=== PATIENT | male | born 1965 | race Caucasian/White ===

== ENCOUNTER 2020-02-20 17:20 | Emergency (ER) | payer MEDICARE, MEDICAID, SELFPAY ==
[2020-02-20 17:20] VITALS: BP 188/97; PULSE 67; RESP 18; TEMP 36.5; O2SAT 100; BMI 19.5
--- NOTE | 2020-02-20 17:26 | HMH.EDGENADL ---
ED Disposition Clinical Impression: Acute pancreatitis Qualifiers: Pancreatitis type: unspecified pancreatitis type Acute pancreatitis complication: no infection or necrosis Qualified Code(s): K85.90 - Acute pancreatitis without necrosis or infection, unspecified Chronic pancreatitis Qualifiers: Pancreatitis type: alcohol induced Qualified Code(s): K86.0 - Alcohol-induced chronic pancreatitis Abdominal mass Qualifiers: Abdominal location: epigastric Qualified Code(s): R19.06 - Epigastric swelling, mass or lump Disposition: Xfer Short-Term Hosp Condition on Discharge: Fair Instructions: DI for Acute Abdomen Referrals: Provider,Referral, MD [Primary Care Provider] - Forms: Transfer Record - ED - Critical Care Critical Care Time: No Attestation: On , the high probability of a clinically significant, sudden or life threatening deterioration of the following system(s) required my full and direct attention, intervention and personal management. The time I documented below is in addition to time spent performing reported procedures but includes the following listed in this critical care notation. Medical Decision Making - Medical Records Medical records reviewed: Yes: I reviewed the patient's medical records. - Abner Inquiry Pt receiving controlled substance: Yes Abner was queried for this patient: No Reason not queried -: Emergent pt cond-no time Risks and benefits of using a controlled substance: were not discussed with pt by me Vital Signs: 02/20/20 17:20 02/20/20 18:36 Temperature 97.7 F Temperature Source Oral Pulse Rate [Right Radial] 67 77 Respiratory Rate 18 16 Blood Pressure [Right Arm] 188/97 H 186/86 H Blood Pressure Mean [Right Arm] 127 119 Blood Pressure Source [Right Arm] Automatic Cuff Blood Pressure Position [Right Arm] Sitting Sitting 02 Sat by Pulse Oximetry 100 97 Oxygen Delivery Method Room Air Room Air - Lab Data Lab results reviewed: Yes: I reviewed the patient's lab results. Lab Results 02/20/20 17:30: WBC 13.8 H, RBC 5.17, Hgb 15.0, Hct 47.1, MCV 91.0, MCH 29.0, MCHC 31.9, RDW 14.0, Plt Count 362, MPV 8.3, Neut % (Auto) 79.7, Lymph % (Auto) 12.2, Milam % (Auto) 5.0, Eos % (Auto) 2.1, Baso % (Auto) 0.9, Neut # (Auto) 11.0 H, Lymph # (Auto) 1.7, Milam # (Auto) 0.7, Eos # (Auto) 0.3, Baso # (Auto) 0.1 02/20/20 18:00: Sodium 141, Potassium 3.8, Chloride 100, Carbon Dioxide 33 H, Anion Gap 11.8, BUN 16, Creatinine 0.70, Estimated Creat Clear 97, Estimated GFR 118, Est GFR ( Amer) 142, Glucose 117 H, Calcium 9.9, Total Bilirubin 0.5, AST 26, ALT 12, Alkaline Phosphatase 98, Total Protein 8.1, Albumin 5.0, Globulin 3.1, Albumin/Globulin Ratio 1.6, Amylase 228 H, Lipase 375 H 02/20/20 18:00: Troponin I < 0.01 Result diagrams: 02/20/20 17:30 02/20/20 18:00 Orders (Tests/Meds): ED MEDICATIONS Discontinued Medications Generic Name Dose Route Start Last Admin Trade Name Freq PRN Reason Stop Dose Admin Diphenhydramine HCl 12.5 mg 02/20/20 17:42 02/20/20 17:37 Benadryl 50mg/1ml Vial IV 02/20/20 17:43 12.5 mg ONCE ONE Administration Ioversol 75 ml 02/20/20 18:22 02/20/20 18:22 Rad-Optiray 350 100ml Vial IV 02/20/20 18:23 75 ml ONCE ONE Administration Protocol Morphine Sulfate 4 mg 02/20/20 17:34 02/20/20 17:41 Morphine 4mg/Ml Syringe IV 02/20/20 17:35 4 mg ONCE ONE Administration Morphine Sulfate 4 mg 02/20/20 18:37 02/20/20 18:38 Morphine 4mg/Ml Syringe IV 02/20/20 18:38 4 mg ONCE ONE Administration Morphine Sulfate 4 mg 02/20/20 19:42 02/20/20 19:43 Morphine 4mg/Ml Syringe IV 02/20/20 19:43 4 mg ONCE ONE Administration Ondansetron HCl 4 mg 02/20/20 17:34 02/20/20 17:30 Zofran 4mg/2ml Vial IV 02/20/20 17:35 4 mg ONCE ONE Administration Sodium Chloride 1,000 ml 02/20/20 17:34 02/20/20 17:41 Sod Chlor 0.9% 1000ml Bag IV 02/20/20 17:35 1,000 ml BOLUS ONE Administration Sodium Chlorid
--- NOTE | 2020-02-20 17:33 | CT_ITS ---
PROCEDURE: CT ABDOMEN PELVIS W CON CLINICAL INDICATION: epigastric pain, h/o pancreatitis COMPARISON: No exams were available for comparison TECHNIQUE: IV Contrast: 75ML OPTIRAY 350 Oral Contrast none the Axial images obtained with sagittal and coronal reformats. All CT scans at the facility use one or more dose reduction, viz: automated exposure control, ma/kV adjustment per patient size (including targeted exams where dose is matched to indication, i.e. head), or iterative reconstruction technique. FINDINGS: LOWER THORAX: No acute finding ABDOMEN & PELVIS: 7 mm hypodensity is present in the left hepatic lobe segment 4A nonspecific too small to categorize.. The spleen, adrenal glands, and kidneys have an unremarkable appearance. Gallbladder also appears unremarkable. A suspicious soft tissue mass is noted along the medial portion of the greater curvature of the bodies of the stomach. This measures up to 5.3 cm AP and 4.2 cm transverse and is inseparable from the wall of the stomach and the upper aspect of the body of the pancreas. The pancreatic tail is dilated distal to this region. There is some coarse calcification in the pancreas in the region of the pancreatic duct. This mass is highly suspicious for neoplasm and may be arising from the stomach or from the pancreas and invading the stomach. The pancreatic duct is also slightly dilated in the body and head of the pancreas with coarse calcifications in the head of the pancreas. No intestinal obstruction or free air is evident. No evidence of appendicitis or diverticulitis. No abnormal fluid collections. The prostate is somewhat enlarged at 4.8 cm. No acute bony anomalies. IMPRESSION: 1. Heterogeneous 5 cm soft tissue mass along the lesser curvature of the stomach and the anterior and superior aspect of the body of the pancreas suspicious for neoplasm and may be originating either from the stomach or the pancreas. MRI with pancreatic protocol suggested for further evaluation. Biopsy could be obtained with endoscopic transgastric directed biopsy. 2. Chronic pancreatitis with coarse calcifications of the pancreas. There is ductal dilatation involving the entire pancreatic duct but is greater in the mid body and tail possibly due to obstruction by the mass. It is possible but felt to be less likely that the mass could be phlegmonous changes from pancreatitis. 3. Indeterminate 7 mm hypodensity of the left lobe of the liver Dictated by: Andrez Joseph MD 02/21/2020 09:48 Electronically signed by Andrez Joseph MD in [place] 02/21/2020 09:48
--- NOTE | 2020-02-20 17:35 | PC.NURSE ---
rt arm with localized redness and c/o itching around IV site after giving zofran
[2020-02-20 17:42] LABS: Basophils # 0.1 K/mm3 (0-0.2); Basophils % 0.9 % (0.1-2.0); Eosinophils # 0.3 K/mm3 (0.0-0.4); Eosinophils % 2.1 % (0.1-12.0); Hematocrit 47.1 % (42.0-52.0); Lymphocytes # 1.7 K/mm3 (0.7-4.5); Lymphocytes % 12.2 % (10-50); Mean Corpuscular HGB Conc 31.9 g/dL (31.8-35.4); Mean Platelet Volume 8.3 fl (7.4-10.4); Monocytes # 0.7 K/mm3 (0.1-1.0); Neutrophils % 79.7 % (37.0-80.0); Platelet Count 362 K/mm3 (142-424); Red Blood Count 5.17 M/mm3 (4.60-6.20); White Blood Count 13.8 K/mm3 (4.8-10.8)
--- NOTE | 2020-02-20 18:15 | PC.NURSE ---
pt to CT
[2020-02-20 18:17] LABS: Chloride 100 mmol/L (98-107); Potassium 3.8 mmoL/L (3.5-5.1); Sodium 141 mmol/L (136-145)
[2020-02-20 18:19] LABS: Amylase 228 U/L (30-110); Blood Urea Nitrogen 16 mg/dl (9-20); Creatinine Clearance Estimated 97 mL/min (50-200); Estimated Glomerular Filt Rate 118 ml/min (>60); GFR (African American) 142 ML/MIN (>60)
[2020-02-20 18:20] LABS: Alanine Aminotransferase 12 U/L (12-78); Albumin/Globulin Ratio 1.6 (1.1-1.8); Alkaline Phosphatase 98 U/L (38-126); Anion Gap 11.8 mEq/L (5-15); Aspartate Amino Transferase 26 U/L (17-59); Bilirubin,Total 0.5 mg/dl (0.2-1.3); Calcium 9.9 mg/dl (8.4-10.2); Carbon Dioxide 33 mmol/L (22.0-30.0); Globulin 3.1 g/dL (1.3-3.2); Glucose 117 mg/dl (74-100); Lipase 375 U/L (23-300); Total Protein,Serum 8.1 g/dl (6.3-8.2)
--- NOTE | 2020-02-20 18:27 | PC.NURSE ---
Pt returned from rad.
--- NOTE | 2020-02-20 18:31 | ECG_ITS ---
APPROVED REPORT Exam: Resting ECG HR:72 bpm ECG Measurements Heart Rate 72 AXES TN 136 P 54 QRSd 96 QRS 79 QT 394 T 72 QTc 431 <Conclusion> Normal sinus rhythm Normal ECG Electronically signed by : Allan Springer, 02/22/2020 06:33:30
[2020-02-20 18:32] LABS: Troponin I < 0.01 ng/ml (0.00-0.034)
[2020-02-20 18:36] VITALS: BP 186/86; PULSE 77; RESP 16; O2SAT 97
--- NOTE | 2020-02-20 19:00 | PC.NURSE ---
report given to sinanrn
--- NOTE | 2020-02-20 19:15 | PC.NURSE ---
paged dr riley
--- NOTE | 2020-02-20 19:24 | PC.NURSE ---
faxed paper to [facility] called and spoke with nga @ [facility] to obtain ed consult.
--- NOTE | 2020-02-20 19:26 | PC.NURSE ---
md on phone [facility] at this time. vss given per phone to the transfer nurse.
--- NOTE | 2020-02-20 19:28 | PC.NURSE ---
pt accepted to ER by Dr. Lindsay.
--- NOTE | 2020-02-20 19:32 | PC.NURSE ---
called and left message on radha's phone
--- NOTE | 2020-02-20 19:37 | PC.NURSE ---
paging dr nam per md request since patient is established with dr te nam at [facility] as his brother just informed us.
--- NOTE | 2020-02-20 19:49 | PC.NURSE ---
on phone with dr te nam
--- NOTE | 2020-02-20 19:57 | PC.NURSE ---
pt accepted by dr nam and will choose to transfer to [facility] instead. awaiting call back
--- NOTE | 2020-02-20 19:59 | PC.NURSE ---
called and spoke with kamilah at [facility] and cancelled [facility] transfer.
--- NOTE | 2020-02-20 20:05 | PC.NURSE ---
pt called out and asked if he could take his home seizure medications. this nurse spoke with Dr. duenas and was told the pt could take his seizure medication from home at this time.
[2020-02-20 20:45] VITALS: BP 168/61; PULSE 79; RESP 18; TEMP 36.8; O2SAT 98
== END 2020-02-20 21:00 | disposition short-term general hospital (02) ==
PROVIDERS: Emergency Provider Emergency Medicine
DX: K85.90 Acute pancreatitis without necrosis or infection, unspecified (principal); K86.0 Alcohol-induced chronic pancreatitis; E11.9 Type 2 diabetes mellitus without complications; F17.210 Nicotine dependence, cigarettes, uncomplicated; F12.10 Cannabis abuse, uncomplicated
CPT/HCPCS: 74177; 80053; 82150; 83690; 84484; 85025; 93005; 96365; 96375; 96376; 99284; J2405; Q9967

== ENCOUNTER 2020-06-07 19:02 | Emergency (ER) | payer MEDICARE, MEDICAID, SELFPAY ==
[2020-06-07] VITALS (7 sets, daily range): BP systolic 136–152; BP diastolic 76–86; PULSE 74–87; RESP 16–19; TEMP 36.9–37.2; O2SAT 97–100; BMI 20.3
--- NOTE | 2020-06-07 19:12 | HMH.EDGENADL ---
ED Disposition <Danny Morin - Last Filed: 06/07/20 20:05> Condition on Discharge: Good - Critical Care Critical Care Time: No <Jackson Taveras - Last Filed: 06/07/20 23:26> Clinical Impression: Nausea, Abdominal mass Abdominal pain Qualifiers: Abdominal location: generalized Qualified Code(s): R10.84 - Generalized abdominal pain Disposition: Xfer Short-Term Hosp Referrals: Provider,Referral, MD [Referring] - Forms: Transfer Record - ED Attestation: On 06/07/20, the high probability of a clinically significant, sudden or life threatening deterioration of the following system(s) required my full and direct attention, intervention and personal management. The time I documented below is in addition to time spent performing reported procedures but includes the following listed in this critical care notation. Medical Decision Making - Medical Records Medical records reviewed: Yes: I reviewed the patient's medical records. MR Comment: 54-year-old male presents the emergency department with abdominal pain. He arrives to the ED hemodynamically stable, with reassuring vital signs, and looks well on exam. He asked for Dilaudid multiple times on the way to the ER per EMS and told me that Dilaudid is all that helps his pain, he also yells out with pain prior to me touching his abdomen on exam. This is concerning for issues of secondary gain, however he does have a history of pancreatitis and complains of tenderness. Will check labs and get a CT scan and reassess. - Abner Inquiry Pt receiving controlled substance: No <Danny Morin - Last Filed: 06/07/20 20:05> - Medical Records MR Comment: CT image demonstrated large mass in right upper quadrant, patient was transferred to [facility] for admission to trauma surgery. - Lab Data Result diagrams: 06/07/20 19:30 06/07/20 19:30 <Jackson Taveras - Last Filed: 06/07/20 23:26> Vital Signs: 06/07/20 19:02 06/07/20 19:42 06/07/20 20:49 Temperature 98.9 F Temperature Source Oral Pulse Rate [Left Radial] 84 85 76 Respiratory Rate 19 18 18 Blood Pressure [Right Arm] 136/79 140/86 151/81 H Blood Pressure Mean [Right Arm] 98 104 104 Blood Pressure Source [Right Arm] Automatic Cuff Blood Pressure Position [Right Arm] Sitting 02 Sat by Pulse Oximetry 100 97 100 Oxygen Delivery Method Room Air Room Air Room Air 06/07/20 21:08 06/07/20 21:39 06/07/20 22:51 Temperature Temperature Source Pulse Rate [Left Radial] 87 75 81 Respiratory Rate 18 18 18 Blood Pressure [Right Arm] 150/83 H 152/83 H 138/76 Blood Pressure Mean [Right Arm] 105 106 96 Blood Pressure Source [Right Arm] Blood Pressure Position [Right Arm] 02 Sat by Pulse Oximetry 100 100 98 Oxygen Delivery Method Room Air Room Air Room Air - Lab Data Lab Results 06/07/20 19:30: WBC 6.6, RBC 3.15 L, Hgb 9.7 L, Hct 29.7 L, MCV 94.1 H, MCH 30.6, MCHC 32.5, RDW 14.7, Plt Count 351, MPV 7.8, Neut % (Auto) 65.8, Lymph % (Auto) 25.6, Hendricks % (Auto) 6.6, Eos % (Auto) 1.6, Baso % (Auto) 0.4, Neut # (Auto) 4.3, Lymph # (Auto) 1.7, Hendricks # (Auto) 0.4, Eos # (Auto) 0.1, Baso # (Auto) 0.0 06/07/20 19:30: Sodium 137, Potassium 4.1, Chloride 95 L, Carbon Dioxide 33 H, Anion Gap 13.1, BUN 14, Creatinine 0.80, Estimated Creat Clear 102, Estimated GFR 101, Est GFR ( Amer) 122, Glucose 106 H, Calcium 9.9, Total Bilirubin 0.8, AST 31, ALT 19, Alkaline Phosphatase 87, Total Protein 7.5, Albumin 4.3, Globulin 3.2, Albumin/Globulin Ratio 1.3, Amylase 91, Lipase 83 06/07/20 19:30: Urine Color Yellow, Urine Appearance Sl cloudy, Urine pH >= 9.0 H, Ur Specific [place] 1.015, Urine Protein 1+, Urine Glucose (UA) Negative, Urine Ketones Trace, Urine Blood Negative, Urine Nitrate Negative, Urine Bilirubin Negative, Urine Urobilinogen 1.0, Ur Leukocyte Esterase Negative, Urine WBC 3-5, Ur Squamous Epith Cells 3-5, Urine Sperm 3+ Orders (Tests/Meds): ED MEDICATIONS Generic Name Dose Route Start Las
--- NOTE | 2020-06-07 19:15 | CT_ITS ---
PROCEDURE: CT ABDOMEN PELVIS W CON CLINICAL INDICATION: pain Left lower quadrant pain with diarrhea COMPARISON: CT CT ABDOMEN PELVIS W CON from 02/20/2020 TECHNIQUE: IV Contrast: 75ML OPTIRAY 350 Oral Contrast None Axial images obtained with sagittal and coronal reformats. All CT scans at the facility use one or more dose reduction, viz: automated exposure control, ma/kV adjustment per patient size (including targeted exams where dose is matched to indication, i.e. head), or iterative reconstruction technique. FINDINGS: LOWER THORAX: No acute finding ABDOMEN & PELVIS: There is a 6 mm hypodensity in the right hepatic lobe, segment 8 possibly due to small cyst not significantly changed. The spleen and adrenal glands are unremarkable. There are multiple metallic fragments now present in the upper abdomen medial to the lesser curvature of the stomach. Previously noted soft tissue mass in the upper abdomen has enlarged and extends toward the right across midline in the right mid abdominal region and into the right upper quadrant and right mid abdominal region with the lower part of the mass at the level of the iliac crest. This mass roughly measures 18 cm long and up to 5.7 cm AP and is contiguous with the lesser curvature of the stomach and the body of the pancreas. Previously the lesion measured 4 by 5 cm. There is dilatation of the distal aspect of the pancreatic duct with coarse calcifications in the pancreas. Hyperdense fluid is present in the pelvis and may be due to hemorrhagic fluid. There is mild thickening of the urinary bladder wall. The prostate is enlarged at 4.8 cm. No evidence of intestinal obstruction or free air. The appendix has an unremarkable appearance. There is some minimal thickening of the right pericolic fascia. The bowel gas pattern is nonspecific with fluid-filled loops of small bowel nondistended and a few scattered air-fluid levels. There is mild urinary bladder wall thickening which may be seen with incomplete distension, chronic outflow obstruction, or cystitis. There are mild degenerative changes in the lumbar spine. IMPRESSION: 1. Large heterogeneous lobulated masslike structure in the upper abdomen along the lesser curvature of the stomach and extending into the right upper quadrant and right mid to lower abdominal region laterally which is increased in size. The increase in size could be related to extension of the soft tissue mass and or hemorrhage into the mass. Multiple metallic densities are now present along the superior aspect of the lesion and could be due to recent surgery or even radiation implants. Please correlate with patient's surgical history 2. Small amount hemorrhagic/complex free fluid in the pelvis. 3. There is mild urinary bladder wall thickening which may be seen with incomplete distension, chronic outflow obstruction, or cystitis. 4. Nondistended fluid-filled loops of small bowel with a few air-fluid levels which could be seen with enteritis. Dictated by: Andrez Joseph MD 06/08/2020 07:22 Andrez Joseph MD in [place] 06/08/2020 07:22
[2020-06-07 19:35] LABS: Microscopic, Urine URINE MICROSCOPIC (MICROSCOPIC)
--- NOTE | 2020-06-07 19:41 | PC.NURSE ---
medical release faxed to [facility] for records
[2020-06-07 20:01] LABS: Appearance,Urine SL CLOUDY (Clear); Basophils % 0.4 % (0.1-2.0); Bilirubin,Urine Negative (Negative); Blood, Urine Negative (Negative); Color,Urine YELLOW (Yellow); Eosinophils # 0.1 K/mm3 (0.0-0.4); Eosinophils % 1.6 % (0.1-12.0); Glucose,Urine (UA) Negative (Negative); Hemoglobin 9.7 g/dL (14.1-18.0); Ketones,Urine TRACE (Negative); Leukocyte Esterase,Urine Negative (Negative); Lymphocytes # 1.7 K/mm3 (0.7-4.5); Lymphocytes % 25.6 % (10-50); Mean Corpuscular HGB Conc 32.5 g/dL (31.8-35.4); Mean Corpuscular Hemoglobin 30.6 pg (27.0-31.2); Mean Corpuscular Volume 94.1 fl (80-94); Mean Platelet Volume 7.8 fl (7.4-10.4); Monocytes # 0.4 K/mm3 (0.1-1.0); Monocytes % 6.6 % (1.7-9.3); Neutrophils # 4.3 K/mm3 (1.8-7.8); Neutrophils % 65.8 % (37.0-80.0); Nitrate,Urine Negative (Negative); Platelet Count 351 K/mm3 (142-424); Protein,Urine 1+ (Negative); Red Blood Count 3.15 M/mm3 (4.60-6.20); Red Cell Distribution Width 14.7 % (11.5-17.5); Specific Gravity, Urine 1.015 (1.005-1.030); White Blood Count 6.6 K/mm3 (4.8-10.8)
[2020-06-07 20:02] LABS: PH,Urine >= 9.0 (5.0-8.5)
[2020-06-07 20:05] LABS: Sperm,Urine 3+ /lpf
[2020-06-07 20:06] LABS: Alanine Aminotransferase 19 U/L (12-78); Albumin Level 4.3 g/dl (3.5-5.0); Albumin/Globulin Ratio 1.3 (1.1-1.8); Alkaline Phosphatase 87 U/L (38-126); Amylase 91 U/L (30-110); Aspartate Amino Transferase 31 U/L (17-59); Bilirubin,Total 0.8 mg/dl (0.2-1.3); Blood Urea Nitrogen 14 mg/dl (9-20); Calcium 9.9 mg/dl (8.4-10.2); Carbon Dioxide 33 mmol/L (22.0-30.0); Creatinine Clearance Estimated 102 mL/min (50-200); Estimated Glomerular Filt Rate 101 ml/min (>60); GFR (African American) 122 ML/MIN (>60); Globulin 3.2 g/dL (1.3-3.2); Glucose 106 mg/dl (74-100); Hematocrit 29.7 % (42.0-52.0); Lipase 83 U/L (23-300); Potassium 4.1 mmoL/L (3.5-5.1); Sodium 137 mmol/L (136-145); Total Protein,Serum 7.5 g/dl (6.3-8.2)
[2020-06-07 20:08] LABS: Anion Gap 13.1 mEq/L (5-15); Chloride 95 mmol/L (98-107)
--- NOTE | 2020-06-07 21:14 | PC.NURSE ---
called to check status of records. Stated they would send them over in a few minutes
--- NOTE | 2020-06-07 21:46 | PC.NURSE ---
calling [facility] to check status of records. stated they were sending them now
--- NOTE | 2020-06-07 22:05 | PC.NURSE ---
[facility] records received
--- NOTE | 2020-06-07 22:16 | PC.NURSE ---
speaking with [facility]
== END 2020-06-07 23:30 | disposition short-term general hospital (02) ==
PROVIDERS: Emergency Medicine; Emergency Provider Emergency Medicine
DX: R10.84 Generalized abdominal pain (principal); K86.1 Other chronic pancreatitis; R19.01 Right upper quadrant abdominal swelling, mass and lump; I10 Essential (primary) hypertension; E11.9 Type 2 diabetes mellitus without complications; Z79.899 Other long term (current) drug therapy
CPT/HCPCS: 74177; 80053; 81001; 82150; 83690; 85025; 96365; 96375; 96376; 99284; J2405; Q9967

== ENCOUNTER 2020-06-22 16:49 | Observation (INO) | payer MEDICARE, MEDICAID, SELFPAY ==
[2020-06-22] VITALS (7 sets, daily range): BP systolic 115–153; BP diastolic 78–96; PULSE 79–110; RESP 16–20; TEMP 36.6–36.9; O2SAT 98–100; BMI 17.0; BMI 18.8; BMI 15.4
--- NOTE | 2020-06-22 17:13 | CT_ITS ---
PROCEDURE: CT ABDOMEN PELVIS W CON CLINICAL INDICATION: recent abd mass resection; severe low abd pain COMPARISON: CT CT ABDOMEN PELVIS W CON from 02/20/[address] ABDOMEN PELVIS W CON from 06/07/2020 TECHNIQUE: IV Contrast: 75ML OPTIRAY 350 Oral Contrast None Axial images obtained with sagittal and coronal reformats. All CT scans at the facility use one or more dose reduction, viz: automated exposure control, ma/kV adjustment per patient size (including targeted exams where dose is matched to indication, i.e. head), or iterative reconstruction technique. FINDINGS: There is history of recent abdominal surgery. There is a subtle low-density in the left hepatic lobe anteriorly image 27 measuring 4 mm. The spleen, adrenal glands, and kidneys have an unremarkable appearance. Multiple surgical clips are present in the mid epigastric region as before. There is a coiled tubular device within the stomach of unknown etiology. In addition, there is a additional hyperdense vice along the lesser curvature of the stomach which is spool shape. Please correlate as the patient's intra recent surgery. This may represent some type of stent or drainage device. There has been some debulking of the soft tissue mass along the lesser curvature of the stomach and in the right upper quadrant anterior to the head of the pancreas. There is however some lobular fluid collection in this area with a few air-fluid levels and mild enhancement. Soft tissue mass once again noted in the right mid abdominal region anterior to the ascending colon. There appears to be involvement of the transverse colon by the right upper quadrant mass. Although the mass, has been somewhat debulked, there remains prominent soft tissue mass in the right mid and upper abdomen with heterogeneous areas of fluid density and gas density. The gas/fluid density could be related to abscess development or postsurgical change. It is somewhat difficult to determine the exact size of these collections and if all these collections are abscess versus areas of unopacified bowel without the aid of oral contrast.. Multiple unopacified bowel loops in the abdomen or pelvis which could obscure or mimic pathology. If symptoms persist, consider repeat exam with IV and oral contrast. No acute bony findings. IMPRESSION: There has been interval surgery. There is complex soft tissue mass in the right quadrant and right mid abdominal region. Some of the mass has been debulked. There are areas of gas and fluid density which could be related to abscess involvement versus postsurgical change. Some of the fluid could be related unopacified bowel loops. Suggest repeat exam with both IV and adequate oral contrast for more thorough evaluation. There is a stent or drainage device within the lesser curvature of the stomach with what appears to represent a loose coiled catheter within the stomach. Please correlate with surgical history. [facility] report rendered 06/22/2020 at 6:24 p.m. Dictated by: Andrez Joseph MD 06/23/2020 08:49 Andrez Joseph MD in [place] 06/23/2020 08:49
--- NOTE | 2020-06-22 17:18 | HMH.EDABDPAI ---
ED Disposition Clinical Impression: Abdominal mass, right upper quadrant, Duodenocolic fistula Disposition: Admitted As Inpatient Condition on Discharge: Fair Instructions: DI for Acute Abdomen Referrals: PCP,No [Primary Care Provider] - - Critical Care Critical Care Time: No Attestation: On 06/22/20, the high probability of a clinically significant, sudden or life threatening deterioration of the following system(s) required my full and direct attention, intervention and personal management. The time I documented below is in addition to time spent performing reported procedures but includes the following listed in this critical care notation. Medical Decision Making - Medical Records Medical records reviewed: Yes: I reviewed the patient's medical records. - Abner Inquiry Pt receiving controlled substance: No Vital Signs: 06/22/20 17:08 06/22/20 17:09 06/22/20 18:15 Temperature 98.2 F 98 F Temperature Source Oral Oral Pulse Rate [Orthostatic Lying] 94 H Pulse Rate [Orthostatic Standing] 110 H Pulse Rate [Right Brachial] 105 H 92 H Respiratory Rate 17 16 Blood Pressure [Orthostatic Lying] 149/92 H Blood Pressure [Orthostatic Standing] 115/80 Blood Pressure [Right Arm] 139/96 H 153/87 H Blood Pressure Mean [Right Arm] 110 109 Blood Pressure Source [Right Arm] Automatic Cuff Blood Pressure Position [Right Arm] Sitting Sitting 02 Sat by Pulse Oximetry 100 98 Oxygen Delivery Method Room Air Room Air 06/22/20 19:01 06/22/20 19:50 Temperature Temperature Source Pulse Rate [Orthostatic Lying] Pulse Rate [Orthostatic Standing] Pulse Rate [Right Brachial] 82 90 Respiratory Rate 18 18 Blood Pressure [Orthostatic Lying] Blood Pressure [Orthostatic Standing] Blood Pressure [Right Arm] 152/91 H 128/82 Blood Pressure Mean [Right Arm] 111 97 Blood Pressure Source [Right Arm] Automatic Cuff Blood Pressure Position [Right Arm] Supine 02 Sat by Pulse Oximetry 100 99 Oxygen Delivery Method Room Air - Lab Data Lab Results 06/22/20 17:34: WBC 7.8, RBC 3.24 L, Hgb 9.8 L, Hct 29.3 L, MCV 90.7, MCH 30.3, MCHC 33.5, RDW 14.4, Plt Count 635 H, MPV 7.3 L, Neut % (Auto) 65.0, Lymph % (Auto) 23.3, Clay % (Auto) 8.0, Eos % (Auto) 2.9, Baso % (Auto) 0.7, Neut # (Auto) 5.1, Lymph # (Auto) 1.8, Clay # (Auto) 0.6, Eos # (Auto) 0.2, Baso # (Auto) 0.1 06/22/20 17:34: Sodium 139, Potassium 3.7, Chloride 95 L, Carbon Dioxide 34 H, Anion Gap 13.7, BUN 17, Creatinine 0.60 L, Estimated Creat Clear 98, Estimated GFR 140, Est GFR ( Amer) 170, Glucose 175 H, Calcium 9.8, Total Bilirubin 0.3, AST 21, ALT 16, Alkaline Phosphatase 140 H, Total Protein 7.4, Albumin 4.0, Globulin 3.4 H, Albumin/Globulin Ratio 1.2, Amylase 47 06/22/20 17:34: Lipase 38 06/22/20 17:34: Lactate 1.3 06/22/20 18:15: Urine Color Yellow, Urine Appearance Clear, Urine pH 6.0, Ur Specific [place] >= 1.030, Urine Protein Trace, Urine Glucose (UA) Negative, Urine Ketones Trace, Urine Blood Negative, Urine Nitrate Negative, Urine Bilirubin Negative, Urine Urobilinogen 1.0, Ur Leukocyte Esterase Negative, Urine WBC 3-5, Calcium Oxalate Crystal 1+, Urine Mucus 4+ Result diagrams: 06/22/20 17:34 06/22/20 17:34 Orders (Tests/Meds): ED MEDICATIONS Generic Name Dose Route Start Last Admin Trade Name Freq PRN Reason Stop Dose Admin Sodium Chloride 1,000 mls @ 999 mls/hr 06/22/20 18:30 06/22/20 18:18 Sod Chlor 0.9% 1000ml Bag IV 06/22/20 19:30 999 mls/hr .[id number] ROSEMARIE Administration Discontinued Medications Generic Name Dose Route Start Last Admin Trade Name Freq PRN Reason Stop Dose Admin Levetiracetam 1,000 mg/ Sodium 110 mls @ 220 mls/hr 06/22/20 17:46 06/22/20 17:55 Chloride IV 06/22/20 17:47 220 mls/hr ONCE ONE Administration Ioversol 75 ml 06/22/20 18:34 06/22/20 18:35 Rad-Optiray 350 100ml Vial IV 06/22/20 18:35 75 ml ONCE ONE Administration Protocol Morphine Sulfate 4 mg 06/22
--- NOTE | 2020-06-22 17:37 | PC.NURSE ---
request for medical records faxed to .
[2020-06-22 17:51] LABS: Basophils # 0.1 K/mm3 (0-0.2); Basophils % 0.7 % (0.1-2.0); Eosinophils # 0.2 K/mm3 (0.0-0.4); Eosinophils % 2.9 % (0.1-12.0); Hematocrit 29.3 % (42.0-52.0); Hemoglobin 9.8 g/dL (14.1-18.0); Lymphocytes # 1.8 K/mm3 (0.7-4.5); Lymphocytes % 23.3 % (10-50); Mean Corpuscular HGB Conc 33.5 g/dL (31.8-35.4); Mean Corpuscular Hemoglobin 30.3 pg (27.0-31.2); Mean Corpuscular Volume 90.7 fl (80-94); Mean Platelet Volume 7.3 fl (7.4-10.4); Monocytes # 0.6 K/mm3 (0.1-1.0); Neutrophils # 5.1 K/mm3 (1.8-7.8); Platelet Count 635 K/mm3 (142-424); Red Blood Count 3.24 M/mm3 (4.60-6.20); Red Cell Distribution Width 14.4 % (11.5-17.5); White Blood Count 7.8 K/mm3 (4.8-10.8)
[2020-06-22 17:56] LABS: Alanine Aminotransferase 16 U/L (12-78); Albumin/Globulin Ratio 1.2 (1.1-1.8); Alkaline Phosphatase 140 U/L (38-126); Amylase 47 U/L (30-110); Anion Gap 13.7 mEq/L (5-15); Aspartate Amino Transferase 21 U/L (17-59); Bilirubin,Total 0.3 mg/dl (0.2-1.3); Blood Urea Nitrogen 17 mg/dl (9-20); Calcium 9.8 mg/dl (8.4-10.2); Carbon Dioxide 34 mmol/L (22.0-30.0); Chloride 95 mmol/L (98-107); Creatinine Clearance Estimated 98 mL/min (50-200); Estimated Glomerular Filt Rate 140 ml/min (>60); GFR (African American) 170 ML/MIN (>60); Globulin 3.4 g/dL (1.3-3.2); Glucose 175 mg/dl (74-100); Lactic Acid 1.3 mmol/L (0.7-2.1); Potassium 3.7 mmoL/L (3.5-5.1); Sodium 139 mmol/L (136-145); Total Protein,Serum 7.4 g/dl (6.3-8.2)
[2020-06-22 18:01] LABS: Lipase 38 U/L (23-300)
[2020-06-22 18:16] LABS: Microscopic, Urine URINE MICROSCOPIC (MICROSCOPIC)
[2020-06-22 18:18] LABS: Appearance,Urine CLEAR (Clear); Blood, Urine Negative (Negative); Color,Urine YELLOW (Yellow); Glucose,Urine (UA) Negative (Negative); Ketones,Urine TRACE (Negative); Leukocyte Esterase,Urine Negative (Negative); Nitrate,Urine Negative (Negative); Protein,Urine TRACE (Negative); Specific Gravity, Urine >= 1.030 (1.005-1.030)
[2020-06-22 18:23] LABS: Bilirubin,Urine Negative (Negative)
[2020-06-22 18:24] LABS: Calcium Oxalate Crystals,Urine 1+ /lpf; Mucus,Urine 4+ /lpf
--- NOTE | 2020-06-22 19:42 | PC.NURSE ---
md on phone with dr mccarthy
--- NOTE | 2020-06-22 19:49 | PC.NURSE ---
waiting on additional cb from [facility]. pt up to br independently, no incident
--- NOTE | 2020-06-22 19:51 | PC.NURSE ---
irving returned call
--- NOTE | 2020-06-22 19:56 | PC.NURSE ---
[facility] refused transfer; stated that they have bed availability
--- NOTE | 2020-06-22 20:03 | PC.NURSE ---
Dr linda accepted patient admission. [facility] contacted to add pt to waiting list until bed becomes available
[2020-06-22 20:28] LABS: Coronavirus 19 IgG Antibody Negative (Negative); Coronavirus 19 IgM Antibody Negative (Negative)
--- NOTE | 2020-06-22 20:59 | PC.NURSE ---
PT ARRIVED TO THE FLOOR VIA W/C FROM ED WITH STAFF AT [id number]
[2020-06-22 23:54] LABS: Ethyl Alcohol < 10 mg/dl (0-10)
[2020-06-23 04:00] VITALS: BP 149/89; PULSE 70; RESP 18; TEMP 36.6; O2SAT 99
--- NOTE | 2020-06-23 04:16 | PC.NURSE ---
Pt A&OX4 lungs CTA. pt c/o of ABD pain medicated per DEC. BS active in all quads. seizures pads in place,. pt ambulated to BR independently. VSS
[2020-06-23 05:04] VITALS: BMI 15.5
--- NOTE | 2020-06-23 05:27 | PC.NURSE ---
Aaliyah @ transfer center call for pt status updated
--- NOTE | 2020-06-23 07:32 | P.CONPHA_ITS ---
[facility] Pharmacy VTE Monitoring - Patient Demographics Admission date: 06/22/20 Report Date: 06/23/20 Time: 07:33 Allergies/Adverse Reactions: Patient Allergies No Known Allergies Allergy (Verified 06/22/20 21:15) Height: 1.7 m Weight: 44.962 kg Patient Problems: Current Active Problems Abdominal mass, right upper quadrant (Acute) Duodenocolic fistula (Acute) - VTE Risk Labs: VTE Related Lab Results Hgb 9.8 g/dL (14.1-18.0) L 06/22/20 17:34 Hct 29.3 % (42.0-52.0) L 06/22/20 17:34 Plt Count 635 K/mm3 (142-424) H 06/22/20 17:34 BUN 17 mg/dl (9-20) 06/22/20 17:34 Creatinine 0.60 mg/dl (0.66-1.25) L 06/22/20 17:34 Estimated Creat Clear 98 mL/min (50-200) 06/22/20 17:34 Was VTE Risk Assessment Performed: Yes VTE Risk Level: Very Low Risk - Prophylaxis VTE Prophylaxis Ordered?: Yes Types of VTE Prophylaxis: TEDS Knee High Location of Applied Device: Bilateral Lower Extremeties
[2020-06-23 08:00] VITALS: BP 117/70; PULSE 70; RESP 17; TEMP 36.8; O2SAT 97
--- NOTE | 2020-06-23 08:46 | HMH.HPDC ---
General - General Admission date:: 06/22/20 Discharge date: 06/23/20 *Admission Date: 06/22/20 *Chief complaint: abd pain *History of present illness: 54-year-old male that presents with approximate day history of progressive lower abdominal pain. Pt states pain is sharp constant nonradiating with occ diarrhea, denies dizziness or weakness. Patient states recent procedure at and discharged but unable to say exactly what was done. Per ed note approximately 2 weeks ago patient was transferred to with mass in the abdomen with hemorrhage. called while pt in ED and no bed available will transfer once bed ready. No chest pain or shortness of breath. [facility] History I have reviewed the patient's past medical history: Yes Medical History: Denies:: Cancer, Diabetes Mellitus Type 1, Diabetes Mellitus Type 2, MRSA *Have you ever received a pneumonia vaccine?: No *Have you received a flu vaccine this season?: No Amputation: No - *Social History Last grade of school completed: 7th or 8th Smoking Status: Former smoker Tobacco Type: cigarettes # Packs/Day (cigarettes): 1 Alcohol Intake: former Alcohol Intake Frequency:: other Substance Use Type: unknown *Occupational Status:: disabled Household Members: family *Travel in the last 8 weeks: None Family Hx:: No significant family history Review of Systems - Review of Systems Review of systems:: pertinent systems reviewed and negative unless documented below - Constitutional Reports fatigue, Denies body ache(s), Denies fever(s) - Eyes Denies blurry vision - ENT Denies poor balance, Denies dizziness, Denies nosebleed, Denies headache(s) - *Cardiovascular Denies chest pain at rest, Denies leg sores, Denies lightheadedness - *Respiratory Denies chest congestion, Denies wheezing - *Gastrointestinal Reports abdominal pain, Reports loose stools, Denies bright, red blood in stools, Denies nausea, Denies vomiting - *Genitourinary Denies painful urination - *Musculoskeletal Denies decreased muscle mass, Denies tingling - Integumentary/Breasts Denies change in hair, Denies rash - *Neurologic Denies abnormal movements, Denies localized weakness - Psychiatric Denies lack of enjoyment, Denies depression - Endocrine Denies excessive sweating - Hematologic/Lymphatic Denies easy bruising - Allergic/Immunologic Denies itchy eyes Exam Vital signs and Labs for Last 24 Hours: Temp Pulse Resp BP Pulse Ox 98.2 F 70 17 117/70 97 06/23/20 08:00 06/23/20 08:00 06/23/20 08:00 06/23/20 08:00 06/23/20 08:00 Laboratory Results - last 24 hr 06/22/20 17:34: WBC 7.8, RBC 3.24 L, Hgb 9.8 L, Hct 29.3 L, MCV 90.7, MCH 30.3, MCHC 33.5, RDW 14.4, Plt Count 635 H, MPV 7.3 L, Neut % (Auto) 65.0, Lymph % (Auto) 23.3, [place] % (Auto) 8.0, Eos % (Auto) 2.9, Baso % (Auto) 0.7, Neut # (Auto) 5.1, Lymph # (Auto) 1.8, [place] # (Auto) 0.6, Eos # (Auto) 0.2, Baso # (Auto) 0.1 06/22/20 17:34: Sodium 139, Potassium 3.7, Chloride 95 L, Carbon Dioxide 34 H, Anion Gap 13.7, BUN 17, Creatinine 0.60 L, Estimated Creat Clear 98, Estimated GFR 140, Est GFR ( Amer) 170, Glucose 175 H, Calcium 9.8, Total Bilirubin 0.3, AST 21, ALT 16, Alkaline Phosphatase 140 H, Total Protein 7.4, Albumin 4.0, Globulin 3.4 H, Albumin/Globulin Ratio 1.2, Amylase 47 06/22/20 17:34: Lipase 38 06/22/20 17:34: Lactate 1.3 06/22/20 17:34: SARS-CoV-2 IgG Ab (Rapid) Negative, SARS-CoV-2 IgM Ab (Rapid) Negative 06/22/20 17:34: Plasma/Serum Alcohol < 10 06/22/20 18:15: Urine Color Yellow, Urine Appearance Clear, Urine pH 6.0, Ur Specific [place] >= 1.030, Urine Protein Trace, Urine Glucose (UA) Negative, Urine Ketones Trace, Urine Blood Negative, Urine Nitrate Negative, Urine Bilirubin Negative, Urine Urobilinogen 1.0, Ur Leukocyte Esterase Negative, Urine WBC 3-5, Calcium Oxalate Crystal 1+, Urine Mucus 4+ I & O for Last 24 hours: Intake & Output 06/20/20 06/21/20 06/22/20 06/23/20 11:59 11:59 11:
--- NOTE | 2020-06-23 14:05 | PC.NURSE ---
called dr. worthy's office- left message with nurse about reordering patients gallbladder pill, and about patients diet. patient has been upset today in regards to his diet. Nurse has educated him on reason for being npo.
--- NOTE | 2020-06-23 14:43 | PC.NURSE ---
[facility] CALLED FOR UPDATED VITALS. VITALS GIVEN
--- NOTE | 2020-06-23 15:00 | PC.NURSE ---
SPOKE WITH PREM FROM PRIMARY CARE (DR. RUIZ NURSE) GAVE ORDERS FOR URSODOI 300MG BID AND CLEAR LIQUID DIET. ALL ORDERS R/V
[2020-06-23 16:00] VITALS: BP 121/76; PULSE 69; RESP 18; TEMP 36.6; O2SAT 100
--- NOTE | 2020-06-23 19:00 | PC.NURSE ---
iv infiltrated. attempts 2 by yudith rodrigez
--- NOTE | 2020-06-23 19:15 | PC.NURSE ---
report given to lauren
[2020-06-23 20:00] VITALS: BP 151/79; PULSE 64; RESP 16; TEMP 36.7; O2SAT 100
[2020-06-24] VITALS (7 sets, daily range): BP systolic 118–130; BP diastolic 58–70; PULSE 59–68; RESP 16–18; TEMP 36.6–36.9; O2SAT 100; BMI 15.5
--- NOTE | 2020-06-24 02:21 | PC.NURSE ---
Pt is A&Ox4 and has ambulated to the BR 2x this shift and tolerated well. Pt has c/o lower ABD pain t/o shift, medicated with [place] 2x thus far with good pain control on reassessment. Pt has denied any N/V/D this shift. ABD is tender and pt guards ABD at times, active BS noted all 4 quads. Pt reports last BM was 06/22. Lungs CTA, room air sat 100%. No peripheral edema noted and skin C/D/I. Seizure pads and precautions in use. VSS, call light within reach.
--- NOTE | 2020-06-24 05:04 | PC.NURSE ---
shift summary, no acute changes since prior nurse's note, pt abdomen tender, pt has rested well t/o shift, did ring out at 0350 with pain in the lower abdomen, explained to pt when pain meds were able to be given again, warm blanket given to pt, pt rested after warm blanket given, seizure pads in place
[2020-06-24 06:10] LABS: Basophils # 0.1 K/mm3 (0-0.2); Basophils % 1.1 % (0.1-2.0); Eosinophils # 0.2 K/mm3 (0.0-0.4); Lymphocytes # 1.6 K/mm3 (0.7-4.5); Lymphocytes % 28.7 % (10-50); Mean Corpuscular HGB Conc 32.3 g/dL (31.8-35.4); Mean Corpuscular Volume 92.8 fl (80-94); Mean Platelet Volume 7.3 fl (7.4-10.4); Monocytes # 0.3 K/mm3 (0.1-1.0); Neutrophils # 3.5 K/mm3 (1.8-7.8); Neutrophils % 62.2 % (37.0-80.0); Platelet Count 554 K/mm3 (142-424); Red Cell Distribution Width 14.2 % (11.5-17.5)
[2020-06-24 06:20] LABS: Chloride 105 mmol/L (98-107); Potassium 3.8 mmoL/L (3.5-5.1); Sodium 140 mmol/L (136-145)
[2020-06-24 06:23] LABS: Blood Urea Nitrogen 10 mg/dl (9-20); Creatinine Clearance Estimated 89 mL/min (50-200); Estimated Glomerular Filt Rate 140 ml/min (>60); GFR (African American) 170 ML/MIN (>60)
[2020-06-24 06:24] LABS: Anion Gap 8.8 mEq/L (5-15); Carbon Dioxide 30 mmol/L (22.0-30.0); Glucose 90 mg/dl (74-100)
[2020-06-24 06:28] LABS: Hematocrit 27.9 % (42.0-52.0); White Blood Count 5.7 K/mm3 (4.8-10.8)
--- NOTE | 2020-06-24 13:10 | P.PN_ITS ---
Internal Medicine - PN: Subj *Date: 06/24/20 *Time: 13:10 Interval history: doing ok - awaiting [facility] transfer - anand fluids - Exam Vital signs and Labs for Last 24 Hours: Temp Pulse Resp BP Pulse Ox 97.9 F 63 18 118/67 100 06/24/20 07:50 06/24/20 08:50 06/24/20 08:50 06/24/20 07:50 06/24/20 08:50 Laboratory Results - last 24 hr 06/23/20 12:50: Influenza Type A Ag Negative, Influenza Type B Ag Negative 06/24/20 05:42: WBC 5.7 D, RBC 3.00 L, Hgb 9.0 L, Hct 27.9 L, MCV 92.8, MCH 30.0, MCHC 32.3, RDW 14.2, Plt Count 554 H, MPV 7.3 L, Neut % (Auto) 62.2, Lymph % (Auto) 28.7, [place] % (Auto) 5.0, Eos % (Auto) 3.0, Baso % (Auto) 1.1, Neut # (Auto) 3.5, Lymph # (Auto) 1.6, [place] # (Auto) 0.3, Eos # (Auto) 0.2, Baso # (Auto) 0.1 06/24/20 05:42: Sodium 140, Potassium 3.8, Chloride 105, Carbon Dioxide 30, Anion Gap 8.8, BUN 10 D, Creatinine 0.60 L, Estimated Creat Clear 89, Estimated GFR 140, Est GFR ( Amer) 170, Glucose 90, Calcium 9.0 I & O for Last 24 hours: Intake & Output 06/22/20 06/23/20 06/24/20 06/25/20 11:59 11:59 11:59 11:59 Intake Total 1411 / 1411 1284 / 1284 Output Total 300 / 300 Balance 1411 / 1411 984 / 984 Weight 99 lb 2 oz 98 lb 9 oz - Constitutional no acute distress, chronically ill appearing - *Routine HEENT Exam Head: Present: normocephalic Eye: Present: EOMI, PERRL ENT: Present: mucous membranes dry - *Routine Neck Exam Present: supple. Absent: JVD - *Routine Respiratory Exam Present: CTA bilaterally - *Routine Cardiovascular Exam Present: RRR, murmur - *Routine Abdominal Exam Present: soft - *Routine Extremities Exam Absent: calf tenderness - *Routine Skin Exam Present: intact - *Routine Neurological Exam Present: alert, CN II-XII intact - Routine Psychiatric Exam Present: normal affect Assessment and Plan (1) Chronic pancreatitis Current visit: No Status: Acute Qualifiers: Pancreatitis type: alcohol induced Qualified Code(s): K86.0 - Alcohol- induced chronic pancreatitis Category: Medical Code(s): K86.1 - Other chronic pancreatitis
[2020-06-25 04:00] VITALS: BP 152/78; PULSE 61; RESP 17; TEMP 36.5; O2SAT 100
--- NOTE | 2020-06-25 05:39 | PC.NURSE ---
Pt is A&Ox4 and has ambulated to the BR several times this shift independently and pt tolerated well. Pt has c/o low ABD pain t/o shift, medicated per MAR 2x thus fat with good relief on reassessment. ABD is soft, tender to palpation, with active BS. Pt had a BM this shift. Pt denies any N/V/D. Pt has tolerated his PO intake, pt drank a small amount of water and 1 jello. Pt was asking for pudding but was reminded of his clear liquid diet parameters. Pt has refused to have his IVF in use. During the previous shift, the IV beep a few times and pt threatened to rip out IV and IV line if it was disconnected. Pt's IV was flushed and is patent with good blood return, although pt refused to allow this RN to reconnect his IVF. VSS, call light within reach, will continue to monitor.
[2020-06-25 05:50] VITALS: BMI 16.3
[2020-06-25 08:00] VITALS: BP 153/80; PULSE 75; RESP 16; TEMP 36.6; O2SAT 100
--- NOTE | 2020-06-25 09:59 | HMH.DCSUM ---
General - General Admission date:: 06/22/20 Discharge date: 06/25/20 HPI HPI: 54-year-old male that presents with approximate day history of progressive lower abdominal pain. Pt states pain is sharp constant nonradiating with occ diarrhea, denies dizziness or weakness. Patient states recent procedure at and discharged but unable to say exactly what was done. Per ed note approximately 2 weeks ago patient was transferred to with mass in the abdomen with hemorrhage. called while pt in ED and no bed available will transfer once bed ready. No chest pain or shortness of breath. Hospital Course Hospital Course: pt has slowly improved while in the hospital and has anand diet with stable labs and we made op visit for pt as he is better and [facility] still with no bed Objective Vital signs: Temp Pulse Resp BP Pulse Ox 97.8 F 75 16 153/80 H 100 06/25/20 08:00 06/25/20 08:00 06/25/20 08:00 06/25/20 08:00 06/25/20 08:00 no acute distress, chronically ill appearing - *Routine HEENT Exam Head: Present: normocephalic Eye: Present: EOMI, PERRL ENT: Present: mucous membranes dry - *Routine Neck Exam Absent: JVD - *Routine Respiratory Exam Present: decreased breath sounds - *Routine Cardiovascular Exam Present: RRR, murmur - *Routine Abdominal Exam Present: soft - *Routine Extremities Exam Present: pulses intact - *Routine Skin Exam Present: intact - *Routine Neurological Exam Present: alert, CN II-XII intact - Routine Psychiatric Exam Present: normal affect DS: Diagnosis - Discharge Diagnosis (1) Chronic pancreatitis Status: Acute (2) Anemia Status: Acute (3) Low body mass index (BMI) Status: Acute (4) Thrombocytosis Status: Acute (5) Abdominal mass, right upper quadrant Status: Acute Discharge Plan - Patient Discharge Instructions ACTIVITY: Continue current activity DIET: continue same diet, NPO Patient Instructions: Acute Abdominal Pain, DI for Abdominal Pain-Adult - Follow up Plan Follow up with: Roberth Marquez MD [Staff Physician] - 2 weeks Disposition: Home, Self-Correction Medications: Home Medications Medication Instructions Recorded Confirmed Type Budesonide/Formoterol Fumarate 10.2 gm IH DAILY 04/26/18 06/22/20 History [Symbicort 160-4.5 Mcg Inhaler] Lacosamide [Vimpat] 200 mg PO BID 04/26/18 06/22/20 History Acetaminophen [Acetaminophen 325mg 325 mg PO Q4H 06/22/20 06/22/20 History tab] Duloxetine HCl [Cymbalta] 90 mg PO DAILY 06/22/20 06/22/20 History Linaclotide [Linzess] 290 mcg PO DAILY 06/22/20 06/22/20 History Trazodone HCl 50 mg PO HS 06/22/20 06/22/20 History ursodioL [Ursodiol] 300 mg PO BID 06/22/20 06/22/20 History Albuterol Sulfate [Ventolin HFA 2 puff IH Q4HP PRN 06/23/20 06/23/20 History Inhaler] levETIRAcetam [Levetiracetam] 1,500 mg PO BID 06/23/20 06/23/20 History Prescriptions/Medication Reconciliation: Continued Lacosamide [Vimpat] 200 mg PO BID Budesonide/Formoterol Fumarate [Symbicort 160-4.5 Mcg Inhaler] 10.2 gm IH DAILY Acetaminophen [Acetaminophen 325mg tab] 325 mg PO Q4H ursodioL [Ursodiol] 300 mg PO BID Linaclotide [Linzess] 290 mcg PO DAILY levETIRAcetam [Levetiracetam] 1,500 mg PO BID Duloxetine HCl [Cymbalta] 90 mg PO DAILY Trazodone HCl 50 mg PO HS Albuterol Sulfate [Ventolin HFA Inhaler] 2 puff IH Q4HP PRN PRN Reason: Shortness Of Breath Or Wheezing - Problem Reconciliation Problems Reviewed?: Yes
--- NOTE | 2020-06-25 10:01 | CARE MANAGER ---
This AM this patient is walking the halls without any distress and is eating and drinking well per nursing staff. This correctional case manager called and spoke with Julius Aaron (brother in law) and he states that the patient has seen Richie Rodriguez in [place] for this problem recently, called and spoke with Rosa Stephens at [facility] and he has an appointment to see Dr. Rodriguez on TuesdayJun 27 at 10am. This was realyed to and he feels patient is stable to discharge with follow-up with Dr. Rodriguez. Julius Aaron ([id number]) is aware and is ok with this plan. According to nurse Elma Cast patient is eating chips with no issues reported. facilities clerk is getting scans together for patient to take to appointment with him.
== END 2020-06-25 11:58 | disposition home or self-care (01) ==
LOC: UTC 16:52 → ER 17:06 → 2ND 20:13
PROVIDERS: Nurse Practitioner Family; Admitting Provider Family Medicine; Emergency Provider Emergency Medicine; Visit Provider Family Medicine
DX: K86.1 Other chronic pancreatitis (principal); D64.9 Anemia, unspecified; R19.01 Right upper quadrant abdominal swelling, mass and lump; D47.3 Essential (hemorrhagic) thrombocythemia
CPT/HCPCS: 74177; 80048; 80053; 81001; 82150; 83605; 83690; 85025; 86328; 87275; 87276; 96365; 96367; 96375; 96376; 99283; G0378; J1953; J2405; Q9967

== ENCOUNTER 2021-03-09 18:33 | Emergency (ER) | payer MEDICARE, MEDICAID, SELFPAY ==
[2021-03-09 18:33] VITALS: BP 154/88; PULSE 93; RESP 18; TEMP 36.8; O2SAT 100; BMI 18.0
[2021-03-09 18:48] LABS: POC Glucose,Bedside 118 (70-110)
--- NOTE | 2021-03-09 18:52 | ECG_ITS ---
APPROVED REPORT Exam: Resting ECG HR:87 bpm ECG Measurements Heart Rate 87 AXES HI 142 P 76 QRSd 100 QRS 80 QT 366 T 75 QTc 440 Conclusion Normal sinus rhythm Possible Left atrial enlargement Borderline ECG Electronically signed by : Allan Springer, 03/10/2021 19:51:03
--- NOTE | 2021-03-09 18:54 | HMH.EDGENADL ---
ED Disposition Clinical Impression: Seizure-like activity Disposition: Home, Self-Care Condition on Discharge: Fair Instructions: DI for Seizure Disorder -- Adult Additional Instructions: You have been evaluated for seizure-like activity. Please take your medication, Vimpat, as prescribed. Avoid situations where sudden loss of consciousness can be dangerous or deadly. Do not drive until cleared by your neurologist. Avoid changes in sleep, diet. Return to the emergency department at once for any new or worsening symptoms. Time of Disposition: 20:01 - Critical Care Critical Care Time: No Attestation: On , the high probability of a clinically significant, sudden or life threatening deterioration of the following system(s) required my full and direct attention, intervention and personal management. The time I documented below is in addition to time spent performing reported procedures but includes the following listed in this critical care notation. Medical Decision Making - Medical Records Medical records reviewed: Yes: I reviewed the patient's medical records. - Abner Inquiry Pt receiving controlled substance: No Vital Signs: 03/09/21 18:33 Temperature 98.2 F Temperature Source Oral Pulse Rate [Right Radial] 93 H Respiratory Rate 18 Blood Pressure [Right Arm] 154/88 H Blood Pressure Mean [Right Arm] 110 Blood Pressure Source [Right Arm] Automatic Cuff Blood Pressure Position [Right Arm] Sitting 02 Sat by Pulse Oximetry 100 Oxygen Delivery Method Room Air - Lab Data Lab Results 03/09/21 18:40: POC Glucose 118 H 03/09/21 19:05: Sodium 141, Potassium 4.5, Chloride 107, Carbon Dioxide 31 H, Anion Gap 7.5, BUN 21 H, Creatinine 0.80, Estimated Creat Clear 77, Estimated GFR 100, Est GFR ( Amer) 121, Glucose 103 H, Calcium 9.5 Result diagrams: 03/09/21 19:05 Orders (Tests/Meds): ORDERS Category Date Time Status CBC w/Auto Diff [Complete Blood Count Auto Diff] Stat Lab 03/09/21 19:05 Received EKG Request [ECG Request by /Aubree] Stat Y 03/09/21 18:36 Ordered - ECG Data Tracing #1 Sinus rhythm with ventricular rate of 87 bpm. QRS 100, QTc 440. No ST segment changes. No arrhythmia. Medical Decision Narrative: In summary this is a 55-year-old male with history of seizures presenting to the emergency department after seizure-like activity. Patient clinically stable on arrival. Vital signs within normal limits. He is conversational. Does not appear to be postictal. Fingerstick blood glucose is 118. Will obtain EKG to assess for cardiac arrhythmia. Will obtain BMP to assess for sodium or other electrolyte abnormality. EKG reassuring, no signs of arrhythmia. Metabolic panel shows no hyponatremia. Patient is prescribed Vimpat. Takes 200 mg twice daily. Instructed to take his nightly dose, as we do not have this medication in our hospital formulary. He is agreeable with this plan. Understands seizure precautions, no driving, no situation where sudden loss of consciousness be dangerous or deadly. Stable for discharge. General Adult HPI - General Stated complaint: ams Time Seen by Provider: 03/09/21 18:35 Mode of Arrival: EMS Source of Information: Patient Limitations: No Limitations - History of Present Illness HPI narrative: 55-year-old male presenting to the emergency department after seizure-like activity. [facility]. They were called for a gentleman possibly having a seizure. When they arrived he was sitting in a chair. Awake and alert. Patient says he was having conversation with someone else. Does not entirely remember what happened. Denies tongue biting. No loss of bowel or bladder continence. He does not believe he fell or struck his head. He admits to marijuana use. Denies alcohol or other drugs. Has a history of seizures. Had his first seizure many years ago. His last seizure was about 1 year ago. Denies difficulty taking
[2021-03-09 19:44] LABS: Anion Gap 7.5 mEq/L (5-15); Basophils # 0.1 K/mm3 (0-0.2); Basophils % 0.9 % (0.1-2.0); Blood Urea Nitrogen 21 mg/dl (9-20); Calcium 9.5 mg/dl (8.4-10.2); Carbon Dioxide 31 mmol/L (22.0-30.0); Chloride 107 mmol/L (98-107); Creatinine Clearance Estimated 77 mL/min (50-200); Eosinophils # 0.2 K/mm3 (0.0-0.4); Eosinophils % 2.2 % (0.1-12.0); Estimated Glomerular Filt Rate 100 ml/min (>60); GFR (African American) 121 ML/MIN (>60); Glucose 103 mg/dl (74-100); Hematocrit 36.9 % (42.0-52.0); Hemoglobin 12.2 g/dL (14.1-18.0); Lymphocytes # 2.2 K/mm3 (0.7-4.5); Lymphocytes % 29.7 % (10-50); Mean Corpuscular Hemoglobin 30.1 pg (27.0-31.2); Mean Corpuscular Volume 91.1 fl (80-94); Monocytes # 0.5 K/mm3 (0.1-1.0); Monocytes % 5.9 % (1.7-9.3); Neutrophils # 4.6 K/mm3 (1.8-7.8); Neutrophils % 61.4 % (37.0-80.0); Platelet Count 298 K/mm3 (142-424); Potassium 4.5 mmoL/L (3.5-5.1); Red Blood Count 4.04 M/mm3 (4.60-6.20); Red Cell Distribution Width 13.1 % (11.5-17.5); Sodium 141 mmol/L (136-145); White Blood Count 7.5 K/mm3 (4.8-10.8)
[2021-03-09 20:13] VITALS: BP 151/71; PULSE 91; RESP 16; TEMP 36.8; O2SAT 99
== END 2021-03-09 20:15 | disposition home or self-care (01) ==
PROVIDERS: Emergency Provider Emergency Medicine
DX: G40.909 Epilepsy, unspecified, not intractable, without status epilepticus (principal); D47.3 Essential (hemorrhagic) thrombocythemia; K86.1 Other chronic pancreatitis; Z87.891 Personal history of nicotine dependence; Z79.899 Other long term (current) drug therapy
CPT/HCPCS: 80048; 82962; 85025; 93005; 99282

== ENCOUNTER 2021-03-10 14:24 | Emergency (ER) | payer MEDICARE, MEDICAID, SELFPAY ==
[2021-03-10] VITALS (7 sets, daily range): BP systolic 120–152; BP diastolic 81–120; PULSE 82–98; RESP 16–22; TEMP 36.4–36.8; O2SAT 99–100; BMI 18.0
--- NOTE | 2021-03-10 14:32 | CT_ITS ---
PROCEDURE: CT HEAD/BRAIN WO CON CLINICAL INDICATION: stroke protocol Possible seizure COMPARISON: CT HEADWO CT head/brain wo con from 02/01/2019 TECHNIQUE: Axial images obtained. All CT scans at the facility use one or more dose reduction, viz: automated exposure control, ma/kV adjustment per patient size (including targeted exams where dose is matched to indication, i.e. head), or iterative reconstruction technique. FINDINGS: No midline shift, mass effect, intracranial hemorrhage, hydrocephalus, or extra-axial fluid collection is evident. There is generalized atrophy with hypoattenuation of the periventricular white matter consistent with microangiopathic changes.. Calcification is noted medial to the anterior aspect of the left temporal lobe in the [place] region not significantly changed. The calvarium has an unremarkable appearance. Small amount of fluid is present in both mastoid sinuses. No sinus air-fluid level. There is old nasal bone fracture an old fracture of the right infraorbital rim. IMPRESSION: No acute intracranial finding Dictated by: Andrez Joseph MD 03/10/2021 15:14 Andrez Joseph MD in [place] 03/10/2021 15:14
--- NOTE | 2021-03-10 14:32 | PC.NURSE ---
notified rad of CT head, stroke protocol
--- NOTE | 2021-03-10 14:37 | PC.NURSE ---
grace at BS, MARIPOSA BRYAN at BS assessing pt
--- NOTE | 2021-03-10 15:35 | HMH.EDGENADL ---
ED Disposition Clinical Impression: Seizure, Altered mental status Epileptic seizure Qualifiers: Epilepsy type: epileptic spasms Disposition: Home, Self-Care Condition on Discharge: Fair Instructions: DI for Seizure Disorder -- Adult, DI for Seizure (Not Epilepsy/Seizure Disorder), DI for Seizure Disorder -- Child Additional Instructions: Taking Vimpat as soon as possible follow-up with Dr. Sanchez the neurologist Referrals: Provider,Referral, [Primary Care Provider] - - Critical Care Critical Care Time: No Attestation: On 03/10/21, the high probability of a clinically significant, sudden or life threatening deterioration of the following system(s) required my full and direct attention, intervention and personal management. The time I documented below is in addition to time spent performing reported procedures but includes the following listed in this critical care notation. Medical Decision Making - Medical Records Medical records reviewed: Yes: I reviewed the patient's medical records. - Abner Inquiry Pt receiving controlled substance: No Vital Signs: 03/10/21 14:24 03/10/21 15:00 03/10/21 15:32 Temperature 97.6 F Temperature Source Oral Pulse Rate 98 H 86 Pulse Rate [Left] 86 Respiratory Rate 16 18 22 Blood Pressure 120/93 H 136/84 Blood Pressure [Right Arm] 120/93 H Blood Pressure Mean 99 94 Blood Pressure Mean [Right Arm] 102 Blood Pressure Source [Right Arm] Automatic Cuff Blood Pressure Position [Right Arm] Sitting 02 Sat by Pulse Oximetry 99 100 99 Oxygen Delivery Method Room Air 03/10/21 16:00 03/10/21 16:31 03/10/21 17:01 Temperature Temperature Source Pulse Rate 82 83 91 H Pulse Rate [Left] Respiratory Rate 20 16 20 Blood Pressure 124/81 138/81 148/120 H Blood Pressure [Right Arm] Blood Pressure Mean 93 102 125 Blood Pressure Mean [Right Arm] Blood Pressure Source [Right Arm] Blood Pressure Position [Right Arm] 02 Sat by Pulse Oximetry 100 100 100 Oxygen Delivery Method - Lab Data Lab results reviewed: Yes: I reviewed the patient's lab results. Lab Results 03/10/21 15:00: WBC 6.6, RBC 4.15 L, Hgb 12.4 L, Hct 37.5 L, MCV 90.4, MCH 29.9, MCHC 33.1, RDW 13.2, Plt Count 359, MPV 8.1, Neut % (Auto) 63.7, Lymph % (Auto) 26.7, [place] % (Auto) 5.9, Eos % (Auto) 2.7, Baso % (Auto) 1.0, Neut # (Auto) 4.2, Lymph # (Auto) 1.8, [place] # (Auto) 0.4, Eos # (Auto) 0.2, Baso # (Auto) 0.1, Total Counted 100, Neutrophils % (Manual) 66, Lymphocytes % (Manual) 21, Monocytes % (Manual) 8, Eosinophils % (Manual) 5 H, Nucleated RBCs 2, Platelet Estimate Normal, Hypochromasia 2+, Macrocytosis 1+ 03/10/21 15:00: Sodium 139, Potassium 4.0, Chloride 106, Carbon Dioxide 25, Anion Gap 12.0, BUN 20, Creatinine 0.70, Estimated Creat Clear 88, Estimated GFR 117, Est GFR ( Amer) 142, Glucose 114 H, Calcium 9.5, Total Bilirubin 0.5, AST 27, ALT 12, Alkaline Phosphatase 80, Total Protein 7.4, Albumin 4.6, Globulin 2.8, Albumin/Globulin Ratio 1.6 Result diagrams: 03/10/21 15:00 03/10/21 15:00 Orders (Tests/Meds): ED MEDICATIONS Discontinued Medications Generic Name Dose Route Start Last Admin Trade Name Sirena PRN Reason Stop Dose Admin Levetiracetam 1,000 mg/ Sodium 110 mls @ 220 mls/hr 03/10/21 16:09 03/10/21 16:39 Chloride IV 03/10/21 16:10 220 mls/hr ONCE ONE Administration ORDERS Category Date Time Status UDS [Drug Screen,Urine] Stat Lab 03/10/21 16:10 Ordered Medical Decision Narrative: 55-year-old male brought in confused possibly postictal according to the EMS patient not a good historian. Apparently patient was prescribed medications including Vimpat which the pharmacy did not have for the last 3 months usually the patient is compliant with his medication according to his neurologist Dr. Sanchez. The prescriptions was rewritten yesterday by Dr. Sanchez patient will be given 1 g of Keppra the hospital does not have Vimpat and
--- NOTE | 2021-03-10 15:37 | PC.NURSE ---
pt brother in law called stating he has spoken with pt seizure doctor, states that doctor asked him to relay to us that pt pharmacy has been out of Vimpat since november. notified ER of this information
[2021-03-10 15:41] LABS: MANUAL DIFFERENTIAL MANUAL DIFFERENTIAL (MANUAL DIFF)
[2021-03-10 15:43] LABS: Basophils # 0.1 K/mm3 (0-0.2); Eosinophils # 0.2 K/mm3 (0.0-0.4); Eosinophils % 2.7 % (0.1-12.0); Hematocrit 37.5 % (42.0-52.0); Hemoglobin 12.4 g/dL (14.1-18.0); Lymphocytes # 1.8 K/mm3 (0.7-4.5); Lymphocytes % 26.7 % (10-50); Mean Corpuscular HGB Conc 33.1 g/dL (31.8-35.4); Mean Corpuscular Hemoglobin 29.9 pg (27.0-31.2); Mean Corpuscular Volume 90.4 fl (80-94); Mean Platelet Volume 8.1 fl (7.4-10.4); Monocytes # 0.4 K/mm3 (0.1-1.0); Monocytes % 5.9 % (1.7-9.3); Neutrophils # 4.2 K/mm3 (1.8-7.8); Neutrophils % 63.7 % (37.0-80.0); Platelet Count 359 K/mm3 (142-424); Red Blood Count 4.15 M/mm3 (4.60-6.20); Red Cell Distribution Width 13.2 % (11.5-17.5); White Blood Count 6.6 K/mm3 (4.8-10.8)
[2021-03-10 15:44] LABS: Chloride 106 mmol/L (98-107); Sodium 139 mmol/L (136-145)
--- NOTE | 2021-03-10 15:45 | PC.NURSE ---
placed call to Dr Sanchez in [place], [facility] neurologist.
[2021-03-10 15:47] LABS: Alanine Aminotransferase 12 U/L (12-78); Albumin Level 4.6 g/dl (3.5-5.0); Albumin/Globulin Ratio 1.6 (1.1-1.8); Alkaline Phosphatase 80 U/L (38-126); Aspartate Amino Transferase 27 U/L (17-59); Bilirubin,Total 0.5 mg/dl (0.2-1.3); Blood Urea Nitrogen 20 mg/dl (9-20); Calcium 9.5 mg/dl (8.4-10.2); Carbon Dioxide 25 mmol/L (22.0-30.0); Creatinine Clearance Estimated 88 mL/min (50-200); Estimated Glomerular Filt Rate 117 ml/min (>60); GFR (African American) 142 ML/MIN (>60); Globulin 2.8 g/dL (1.3-3.2); Glucose 114 mg/dl (74-100); Total Protein,Serum 7.4 g/dl (6.3-8.2)
--- NOTE | 2021-03-10 16:28 | PC.NURSE ---
pt sister called for a ride for pt, he is being discharged.
[2021-03-10 17:11] LABS: Eosinophils % 5 % (0-3); Lymphocytes % 21 % (10-50); Monocytes % 8 % (2-9); Neutrophils % 66 % (42-76); Nucleated Red Blood Cells 2; Total Cells Counted 100
[2021-03-10 17:12] LABS: Hypochromasia 2+; Macrocytosis 1+; Platelet Estimate Normal
== END 2021-03-10 18:00 | disposition home or self-care (01) ==
PROVIDERS: Emergency Provider Emergency Medicine
DX: G40.909 Epilepsy, unspecified, not intractable, without status epilepticus (principal); Z79.899 Other long term (current) drug therapy
CPT/HCPCS: 70450; 80053; 85007; 85014; 85018; 85048; 85049; 96365; 99283; J1953

== ENCOUNTER 2021-03-12 06:18 | Emergency (ER) | payer MEDICARE, MEDICAID, SELFPAY ==
[2021-03-12 06:17] VITALS: BP 182/108; PULSE 109; RESP 17; TEMP 36.2; O2SAT 100; BMI 19.5
--- NOTE | 2021-03-12 06:39 | PC.NURSE ---
suturing at this time. wants to suture prior to obtainment of labs.
--- NOTE | 2021-03-12 07:13 | PC.NURSE ---
Attempted to call patient sister to come to ED to assist in patient questions without answer
[2021-03-12 07:18] VITALS: BP 167/109; PULSE 109; O2SAT 100
[2021-03-12 07:30] VITALS: BP 169/110; PULSE 114; O2SAT 100
--- NOTE | 2021-03-12 07:34 | ECG_ITS ---
APPROVED REPORT Exam: Resting ECG HR:109 bpm ECG Measurements Heart Rate 109 AXES UT 146 P 82 QRSd 94 QRS 87 QT 334 T 80 QTc 449 Conclusion Sinus tachycardia Biatrial enlargement Abnormal ECG Electronically signed by : Allan Springer, 03/13/2021 10:24:27
--- NOTE | 2021-03-12 07:34 | [facility].EDWNDL ---
ED Disposition Condition on Discharge: Good - Critical Care Critical Care Time: No <Roberth Marquez - Last Filed: 03/12/21 07:45> Condition on Discharge: Fair Time of Disposition: 10:23 <Gallo Guzmán - Last Filed: 03/12/21 10:23> Clinical Impression: Laceration, Altered mental status Laceration of left lower leg Qualifiers: Encounter type: initial encounter Qualified Code(s): S81.812A - Laceration without foreign body, left lower leg, initial encounter Dementia Qualifiers: Dementia type: unspecified type Dementia behavioral disturbance: with behavioral disturbance Qualified Code(s): F03.91 - Unspecified dementia with behavioral disturbance Clinical Impression: (Ruled Out): Finger laceration Disposition: Home, Self-Care Instructions: DI for Laceration Repair Additional Instructions: Keep wound clean wound check in 2 days follow-up with neurologist consider psychiatric evaluation for dementia Prescriptions: cephALEXin [Keflex 750mg Cap] 750 mg PO Q12H #10 cap Transmission Status: Pending to [facility] Referrals: Provider,Referral, [Primary Care Provider] - Attestation: On 03/12/21, the high probability of a clinically significant, sudden or life threatening deterioration of the following system(s) required my full and direct attention, intervention and personal management. The time I documented below is in addition to time spent performing reported procedures but includes the following listed in this critical care notation. Medical Decision Making - Medical Records Medical records reviewed: Yes: I reviewed the patient's medical records. - Abner Inquiry Pt receiving controlled substance: No - Lab Data Lab results reviewed: Yes: I reviewed the patient's lab results. - ECG Data Tracing #1 Normal Sinus Rhythm: Yes Ischemic changes: non-specific ST-T wave changes <Roberth Marquez - Last Filed: 03/12/21 07:45> - Lab Data Result diagrams: 03/12/21 07:21 03/12/21 07:21 <Gallo Guzmán - Last Filed: 03/12/21 10:23> Vital Signs: 03/12/21 06:17 03/12/21 07:18 03/12/21 07:30 Temperature 97.1 F L Temperature Source Oral Pulse Rate 109 H 114 H Pulse Rate [Right Brachial] 109 H Respiratory Rate 17 Blood Pressure 167/109 H 169/110 H Blood Pressure [Right Arm] 182/108 H Blood Pressure Mean 116 Blood Pressure Mean [Right Arm] 132 Blood Pressure Source [Right Arm] Automatic Cuff Blood Pressure Position [Right Arm] Sitting 02 Sat by Pulse Oximetry 100 100 100 Oxygen Delivery Method Room Air 03/12/21 08:15 03/12/21 09:52 Temperature Temperature Source Pulse Rate 118 H 100 H Pulse Rate [Right Brachial] Respiratory Rate 18 Blood Pressure 172/110 H 161/81 H Blood Pressure [Right Arm] Blood Pressure Mean Blood Pressure Mean [Right Arm] Blood Pressure Source [Right Arm] Blood Pressure Position [Right Arm] 02 Sat by Pulse Oximetry 98 98 Oxygen Delivery Method Room Air - Lab Data Lab Results 03/12/21 07:21: WBC 13.0 H D, RBC 4.40 L, Hgb 13.3 L, Hct 39.5 L, MCV 89.7, MCH 30.3, MCHC 33.8, RDW 13.2, Plt Count 377, MPV 7.8, Neut % (Auto) 80.7 H, Lymph % (Auto) 12.4, [place] % (Auto) 6.2, Eos % (Auto) 0.3, Baso % (Auto) 0.4, Neut # (Auto) 10.5 H, Lymph # (Auto) 1.6, [place] # (Auto) 0.8, Eos # (Auto) 0.0, Baso # (Auto) 0.1 03/12/21 07:21: Sodium 145, Potassium 4.1, Chloride 111 H, Carbon Dioxide 25, Anion Gap 13.1, BUN 24 H, Creatinine 0.70, Estimated Creat Clear 96, Estimated GFR 117, Est GFR ( Amer) 142, Glucose 131 H, Calcium 9.8, Total Bilirubin 0.5, AST 29, ALT 14, Alkaline Phosphatase 101, Troponin I < 0.01, Total Protein 7.9, Albumin 4.9, Globulin 3.0, Albumin/Globulin Ratio 1.6, Salicylates < 1.0 L, Acetaminophen < 10 L 03/12/21 07:21: Plasma/Serum Alcohol < 10 03/12/21 07:21: TSH 1.29, Thyroxine (T4) 10.3 03/12/21 07:32: Urine Color Yellow, Urine Appearance Clear, Urine pH 6.0, Ur Specific [place] >= 1.030, U
[2021-03-12 07:39] LABS: Microscopic, Urine URINE MICROSCOPIC (MICROSCOPIC)
[2021-03-12 07:41] LABS: Adenovirus,PCR Not Detected (NotDetected); Bordetella Pertussis Not Detected (NotDetected); Chlamydophila Pneumoniae, PCR Not Detected (NotDetected); Coronavirus 19, PCR Not Detected (NotDetected); Coronavirus 229E Not Detected (NotDetected); Coronavirus NL63 Not Detected (NotDetected); Coronavirus OC43 Not Detected (NotDetected); Coronovirus HKU1,PCR Not Detected (NotDetected); Human Metapneumovirus Not Detected (NotDetected); Influenza A, PCR Not Detected (NotDetected); Influenza AH1, 2009 Not Detected (NotDetected); Influenza AH1, PCR Not Detected (NotDetected); Influenza AH3,PCR Not Detected (NotDetected); Influenza B, PCR Not Detected (NotDetected); Mycoplasma Pneumoniae, PCR Not Detected (NotDetected); Parainfluenza 1, PCR Not Detected (NotDetected); Parainfluenza 2, PCR Not Detected (NotDetected); Parainfluenza 3, PCR Not Detected (NotDetected); Parainfluenza 4, PCR Not Detected (NotDetected); Respiratory Syncytial Virus Not Detected (NotDetected); Rhinovirus/Enterovirus Not Detected (NotDetected)
--- NOTE | 2021-03-12 07:42 | PC.NURSE ---
Spoke with sister, she will be coming to hospital at this time.
[2021-03-12 07:44] LABS: Basophils # 0.1 K/mm3 (0-0.2); Basophils % 0.4 % (0.1-2.0); Eosinophils % 0.3 % (0.1-12.0); Hematocrit 39.5 % (42.0-52.0); Hemoglobin 13.3 g/dL (14.1-18.0); Lymphocytes # 1.6 K/mm3 (0.7-4.5); Lymphocytes % 12.4 % (10-50); Mean Corpuscular HGB Conc 33.8 g/dL (31.8-35.4); Mean Corpuscular Hemoglobin 30.3 pg (27.0-31.2); Mean Corpuscular Volume 89.7 fl (80-94); Mean Platelet Volume 7.8 fl (7.4-10.4); Monocytes # 0.8 K/mm3 (0.1-1.0); Monocytes % 6.2 % (1.7-9.3); Neutrophils # 10.5 K/mm3 (1.8-7.8); Neutrophils % 80.7 % (37.0-80.0); Platelet Count 377 K/mm3 (142-424); Red Cell Distribution Width 13.2 % (11.5-17.5)
[2021-03-12 07:44] LABS: Appearance,Urine CLEAR (Clear); Bilirubin,Urine Negative (Negative); Blood, Urine Negative (Negative); Color,Urine YELLOW (Yellow); Glucose,Urine (UA) TRACE (Negative); Ketones,Urine 1+ (Negative); Leukocyte Esterase,Urine Negative (Negative); Nitrate,Urine Negative (Negative); Protein,Urine Negative (Negative); Specific Gravity, Urine >= 1.030 (1.005-1.030); Urobilinogen,Urine 0.2 EU/dl (0.2)
--- NOTE | 2021-03-12 07:44 | PC.NURSE ---
Pt bed sheets changed and gown, blanket placed on pt.
--- NOTE | 2021-03-12 07:48 | XR_ITS ---
PROCEDURE: XR TIBIA FIBULA LT 2V CLINICAL INDICATION: injury' Pain, laceration COMPARISON: No exams were available for comparison FINDINGS: There is a small amount of soft tissue gas along the medial aspect and mid aspect of the calf with some contour deformity of the subcutaneous tissues suggesting the area of laceration. No acute bony findings. The joint spaces are well-preserved. No significant degenerative/arthritic changes. No erosive changes evident. Other findings:None. IMPRESSION: Mid calf laceration with soft tissue gas. No acute bony findings. Dictated by: Andrez Joseph MD 03/12/2021 09:32 Andrez Joseph MD in [place] 03/12/2021 09:32
[2021-03-12 07:49] LABS: Chloride 111 mmol/L (98-107); Sodium 145 mmol/L (136-145)
[2021-03-12 07:50] LABS: Potassium 4.1 mmoL/L (3.5-5.1)
--- NOTE | 2021-03-12 07:51 | XR_ITS ---
PROCEDURE: XR CHEST PORTABLE CLINICAL HISTORY: medical work up COMPARISON: CR CXR2V XR chest 2V from 08/12/[address] ABDOMEN PELVIS W CON from 02/20/[address] ABDOMEN PELVIS W CON from 06/22/2020 FINDINGS: The cardiomediastinal silhouette and pulmonary vascularity are within normal limits. Parenchymal opacity is once again noted in the right upper lobe not significantly changed suggesting an area of scarring. Nodular opacity noted in the left midlung at 9 mm at the 4th interspace consistent with a granuloma or nipple shadow unchanged. Unusual serpentine area of opacification in the left upper quadrant medially possibly due to prior area of high density non water-soluble contrast injection not significantly changed from 06/22/2020 No acute bony abnormalities. IMPRESSION: No acute finding. Please see above for detail. Stable irregular opacity right upper lobe which may represent scarring Dictated by: Andrez Joseph MD 03/12/2021 09:31 Andrez Joseph MD in [place] 03/12/2021 09:31
[2021-03-12 07:52] LABS: Alanine Aminotransferase 14 U/L (12-78); Albumin Level 4.9 g/dl (3.5-5.0); Albumin/Globulin Ratio 1.6 (1.1-1.8); Alkaline Phosphatase 101 U/L (38-126); Anion Gap 13.1 mEq/L (5-15); Aspartate Amino Transferase 29 U/L (17-59); Bilirubin,Total 0.5 mg/dl (0.2-1.3); Blood Urea Nitrogen 24 mg/dl (9-20); Calcium 9.8 mg/dl (8.4-10.2); Carbon Dioxide 25 mmol/L (22.0-30.0); Creatinine Clearance Estimated 96 mL/min (50-200); Estimated Glomerular Filt Rate 117 ml/min (>60); GFR (African American) 142 ML/MIN (>60); Glucose 131 mg/dl (74-100); Total Protein,Serum 7.9 g/dl (6.3-8.2)
[2021-03-12 07:53] LABS: Acetaminophen < 10 ug/ml (10-30); Salicylate < 1.0 mg/dL (2.0-20.0)
[2021-03-12 07:54] LABS: Ethyl Alcohol < 10 mg/dl (0-10)
[2021-03-12 07:55] LABS: Amphetamine/Metha Screen,Urine Negative ng/ml (<1000); Barbiturates Screen,Urine Negative ng/ml (<200)
[2021-03-12 07:56] LABS: Benzodiazepines Screen,Urine Negative ng/ml (<200)
[2021-03-12 07:57] LABS: Cannabinoid Screen,Urine Positive ng/ml (<50); Cocaine Screen,Urine Negative ng/ml (<300)
[2021-03-12 07:58] LABS: Methadone Screen,Urine Negative ng/ml (<300); Opiate Screen,Urine Negative ng/ml (<300)
[2021-03-12 07:59] LABS: Phencyclidine Screen,Urine Negative ng/ml (<25)
[2021-03-12 08:02] LABS: Bacteria,Urine Trace /lpf; RBC,Urine Occasional #/hpf (0-3); Squamous Epithelial Cell,Urine Occasional #/hpf (0-5); WBC,Urine Occasional #/hpf (0-3)
--- NOTE | 2021-03-12 08:03 | PC.NURSE ---
Rad at bedside
[2021-03-12 08:08] LABS: Troponin I < 0.01 ng/ml (0.00-0.034)
[2021-03-12 08:14] LABS: Ammonia < 9 umol/L (9-30)
[2021-03-12 08:15] VITALS: BP 172/110; PULSE 118; O2SAT 98
[2021-03-12 08:26] LABS: T4 (Thyroxine) 10.3 ug/dl (5.53-11.0)
[2021-03-12 08:40] LABS: Thyroid Stimulating Hormone 1.29 uIU/mL (0.465-4.68)
[2021-03-12 09:52] VITALS: BP 161/81; PULSE 100; RESP 18; O2SAT 98
--- NOTE | 2021-03-12 09:53 | PC.NURSE ---
MD VERBALLY ORDERED FOR WOUND TO BE WRAPPED WITH AN PAD AND COBAN TO PROVIDED PROTECTION FOR WOUND
--- NOTE | 2021-03-12 10:03 | PC.NURSE ---
CALLED DR. MAGDALENO OFFICE AND DR. JESUS CONSULTED WITH DR. MAGDALENO
[2021-03-12 10:15] VITALS: BP 163/87; PULSE 101; RESP 18; TEMP 36.9; O2SAT 98
[2021-03-14 16:54] LABS: Levetiracetam (Keppra) 55.4 ug/mL (10.0-40.0)
== END 2021-03-12 10:40 | disposition home or self-care (01) ==
PROVIDERS: Emergency Provider Emergency Medicine
DX: S81.812A Laceration without foreign body, left lower leg, initial encounter (principal); S61.412A Laceration without foreign body of left hand, initial encounter; X78.8XXA Intentional self-harm by other sharp object, initial encounter; Y92.099 Unspecified place in other non-institutional residence as the place of occurrence of the external cause; Z23 Encounter for immunization; Z51.81 Encounter for therapeutic drug level monitoring; F03.91 Unspecified dementia, unspecified severity, with behavioral disturbance; D64.9 Anemia, unspecified
CPT/HCPCS: 12004; 71045; 73590; 80053; 80177; 80305; 80329; 81001; 82140; 84436; 84443; 84484; 85025; 87581; 87633; 87798; 90715; 93005; 96365; 99283

== ENCOUNTER 2021-03-21 10:19 | Emergency (ER) | payer MEDICARE, MEDICAID, SELFPAY ==
[2021-03-21 10:25] VITALS: BP 133/86; PULSE 86; RESP 19; TEMP 37; O2SAT 99; BMI 21.9
[2021-03-21 10:32] VITALS: BP 133/86; PULSE 86; RESP 19; TEMP 37; O2SAT 99
== END 2021-03-21 10:35 | disposition home or self-care (01) ==
LOC: UTC 10:25
PROVIDERS: Emergency Provider Nurse Practitioner
DX: S61.412D Laceration without foreign body of left hand, subsequent encounter (principal)

== ENCOUNTER 2021-03-29 13:58 | Emergency (ER) | payer MEDICARE, MEDICAID, SELFPAY ==
[2021-03-29 15:37] VITALS: RESP 18; TEMP 36.7; O2SAT 100
[2021-03-29 15:38] VITALS: BP 132/86; PULSE 90; RESP 18; TEMP 36.9
== END 2021-03-29 15:46 | disposition home or self-care (01) ==
PROVIDERS: Emergency Provider Nurse Practitioner Family
DX: S81.812D Laceration without foreign body, left lower leg, subsequent encounter (principal); S61.412D Laceration without foreign body of left hand, subsequent encounter